=== PATIENT | female | born 1985 | race Two or more races ===

== ENCOUNTER 2019-02-14 00:11 | Inpatient (IN) | payer OTHER ==
[~2019-02-14] VITALS: Ht 171 cm; Wt 88.0 kg
[~2019-02-14 00:11] MED LIST: FERR-89 PO; IBUP-2070 PO
[2019-02-14] MEDS ORDERED: RINGERS SOLUTION,LACTATED 1,000 ML IV PRN (01:47)
[2019-02-14] MEDS ORDERED: OXYTOCIN 30 UNITS/LACT RINGERS 500 ML IV ONE ×2 (01:47→09:08)
[2019-02-14] MEDS: RINGERS SOLUTION,LACTATED 1,000 ML IV SCH ×4 (01:47→08:12)
[2019-02-14] MEDS ORDERED: METOCLOPRAMIDE HCL 5 MG/ML 2 ML VIAL IVP PRN (02:00)
[2019-02-14] MEDS ORDERED: FentaNYL CITRATE-PF 100 MCG/2 ML VIAL IVP PRN (02:00)
[2019-02-14] MEDS ORDERED: CITRIC ACID/SODIUM CITRATE 30 ML SOLUTION UDCUP PO PRN (02:00)
[2019-02-14] MEDS ORDERED: BETAMETHASONE SOLUSPAN 6 MG/ML 5 ML VIAL IM SCH ×2 (02:00→02:15)
[2019-02-14] MEDS ORDERED: AMPICILLIN SODIUM 2 GM/NS 100 ML IV ONE (02:00)
[2019-02-14] MEDS ORDERED: LIDOCAINE/PF 1% 30 ML VIAL INJ PRN (02:00)
[2019-02-14] MEDS ORDERED: MAGNESIUM SULFATE 500 ML IV SCH (02:01)
[2019-02-14] MEDS ORDERED: MAGNESIUM SULFATE 4 GM/WATER 100 ML IV ONE (02:15)
[2019-02-14] MEDS ORDERED: CALCIUM GLUCONATE 100 MG/ML 10 ML IVP PRN (02:15)
[2019-02-14 02:27] LABS: BASOPHILS % (AUTO) 0.5 % (0.0-2.0); EOSINOPHILS % (AUTO) 0.5 % (1.0-6.0); HEMATOCRIT 37.5 % (36-46); HEMOGLOBIN 12.5 g/dL (12.0-16.0); LYMPHOCYTES # (AUTO) 1.8 K/uL (1.0-4.8); LYMPHOCYTES % (AUTO) 14.4 % (22.0-44.0); MEAN CORPUSCULAR HEMOGLOBIN 28.8 pg (26.0-34.0); MEAN CORPUSCULAR HGB CONC 33.4 G/dL (31.0-37.0); MEAN CORPUSCULAR VOLUME 86 fL (80-100); MONOCYTES # (AUTO) 0.8 K/uL (0.1-1.0); MONOCYTES % (AUTO) 6.7 % (2.0-9.0); NEUTROPHILS # (AUTO) 9.8 K/uL (1.8-7.7); NEUTROPHILS % (AUTO) 77.9 % (40.0-70.0); PLATELET COUNT (AUTO)-OB 224 K/uL (150-450); RED BLOOD CELL COUNT(AUTO) 4.35 MIL/uL (4.00-5.20); RED CELL DISTRIBUTION WIDTH 14.5 % (11.5-14.5)
[2019-02-14] MEDS ORDERED: ROPIVACAINE HCL/PF 0.2% 100 ML ED ONE (04:41)
[2019-02-14] MEDS ORDERED: LIDOCAINE/PF 2% 5 ML VIAL ONE (04:41)
[2019-02-14] MEDS ORDERED: ROPIVACAINE HCL/PF 0.2% 100 ML ED PRN (05:00)
[2019-02-14] MEDS ORDERED: ONDANSETRON HCL 4 MG/2 ML VIAL IVP PRN (05:00)
[2019-02-14] MEDS ORDERED: NALBUPHINE HCL 10 MG/ML VIAL IVP PRN (05:00)
[2019-02-14] MEDS ORDERED: DiphenhydrAMINE HCL 50 MG/ML VIAL IVP PRN (05:00)
[2019-02-14] MEDS ORDERED: INFLUENZA VIRUS VACCINE QVS 2019-20 (3YR+)/PF 60 MCG/0.5 ML SYRINGE IM ONE (05:30)
[2019-02-14 05:48] VITALS: BP 115/65
[2019-02-14] MEDS ORDERED: AMPICILLIN SODIUM 1 GM/NS 50 ML IV SCH (06:00)
[2019-02-14] MEDS ORDERED: prenatal vit PO (07:00)
[2019-02-14] MEDS ORDERED: AZITHROMYCIN 500 MG/NS 250 ML IV SCH (07:30)
[2019-02-14] MEDS ORDERED: OXYGEN THERAPY IH SCH (08:00)
[2019-02-14] MEDS ORDERED: METHYLERGONOVINE MALEATE 0.2 MG/ML VIAL IM PRN (09:15)
[2019-02-14] MEDS ORDERED: MINERAL OIL 30 ML UDCUP ONE (10:40)
[2019-02-14] MEDS ORDERED: OxyCODONE HCL/ACETAMINOPHEN 5-325 MG TABLET PO PRN (11:15)
[2019-02-14] MEDS ORDERED: MAGNESIUM HYDROXIDE SUSPENSION 30 ML UDCUP PO PRN (11:15)
[2019-02-14] MEDS ORDERED: SENNA/DOCUSATE SODIUM 8.6-50 MG TABLET PO PRN (11:15)
[2019-02-14] MEDS ORDERED: GLYCERIN/WITCH HAZEL LEAF 40 PADS JAR TP PRN (11:15)
[2019-02-14] MEDS ORDERED: METHYLERGONOVINE MALEATE 0.2 MG TABLET PO PRN (11:15)
[2019-02-14] MEDS ORDERED: BENZOCAINE 20%/MENTHOL 56 GM SPRAY CANISTER TP PRN (11:15)
[2019-02-14] MEDS ORDERED: LANOLIN 7 GM OINTMENT TP PRN (11:15)
[2019-02-14] MEDS ORDERED: PREN-217 PO (11:20)
[2019-02-14] MEDS ORDERED: MINERAL OIL 30 ML UDCUP VG ONE (11:30)
[2019-02-14] MEDS ORDERED: MINERAL OIL 90 ML BOTTLE TP ONE (11:45)
[2019-02-14] MEDS: OxyCODONE HCL/ACETAMINOPHEN 5-325 MG TABLET PO PRN (14:22)
[2019-02-14] MEDS: IBUPROFEN 800 MG TABLET PO PRN ×2 (14:22→20:48)
[2019-02-15] MEDS: OxyCODONE HCL/ACETAMINOPHEN 5-325 MG TABLET PO PRN (00:12)
[2019-02-15] MEDS: IBUPROFEN 800 MG TABLET PO PRN (04:18)
[2019-02-15 05:41] LABS: BASOPHILS % (AUTO) 0.6 % (0.0-2.0); EOSINOPHILS % (AUTO) 1.1 % (1.0-6.0); HEMATOCRIT 35.3 % (36-46); HEMOGLOBIN 11.7 g/dL (12.0-16.0); LYMPHOCYTES # (AUTO) 2.3 K/uL (1.0-4.8); LYMPHOCYTES % (AUTO) 18.1 % (22.0-44.0); MEAN CORPUSCULAR HEMOGLOBIN 28.8 pg (26.0-34.0); MEAN CORPUSCULAR HGB CONC 33.2 G/dL (31.0-37.0); MEAN CORPUSCULAR VOLUME 87 fL (80-100); MONOCYTES % (AUTO) 7.9 % (2.0-9.0); NEUTROPHILS # (AUTO) 9.2 K/uL (1.8-7.7); NEUTROPHILS % (AUTO) 72.3 % (40.0-70.0); PLATELET COUNT (AUTO)-OB 209 K/uL (150-450); RED BLOOD CELL COUNT(AUTO) 4.07 MIL/uL (4.00-5.20); RED CELL DISTRIBUTION WIDTH 14.6 % (11.5-14.5)
[2019-02-15] MEDS ORDERED: PREN-217 PO (08:38)
== END 2019-02-15 16:55 | disposition home or self-care (01) | DRG 807 ==
LOC: OBSVTOIN 00:11 → 4S 00:11
PROVIDERS: ADMIT Specialist; ATTEND Specialist
PROC: 10E0XZZ Delivery of Products of Conception, External Approach (ICD-10-PCS; principal; 2019-02-14)
PROC: 0HQ9XZZ Repair Perineum Skin, External Approach (ICD-10-PCS; 2019-02-14)
PROC: 3E0R3BZ Introduction of Anesthetic Agent into Spinal Canal, Percutaneous Approach (ICD-10-PCS; 2019-02-14)
PROC: 00HU33Z Insertion of Infusion Device into Spinal Canal, Percutaneous Approach (ICD-10-PCS; 2019-02-14)
PROC: 3E02340 Introduction of Influenza Vaccine into Muscle, Percutaneous Approach (ICD-10-PCS; 2019-02-14)
DX: O42.913 Preterm premature rupture of membranes, unspecified as to length of time between rupture and onset of labor, third trimester (principal); Z37.0 Single live birth; Z3A.36 36 weeks gestation of pregnancy; Z23 Encounter for immunization; O70.0 First degree perineal laceration during delivery
CPT/HCPCS: 76805; 86850; 86900; 86901; 90686; J0290; J0456; J2590; J2795; J3490; J7120